=== PATIENT | female | born 1995 | race American Indian/Alaskan Native ===

== ENCOUNTER 2017-10-19 05:02 | Emergency (ER) | payer SELFPAY ==
[2017-10-19 07:48] LABS: Basophils # (Auto) 0.1 K/mm3 (0.0-0.1); Basophils % (Auto) 0.7 % (0.0-1.8); Eosinophils # (Auto) 0.1 K/mm3 (0.0-0.4); Eosinophils % (Auto) 1.3 % (0.0-4.3); Lymphocytes # (Auto) 2.5 K/mm3 (1.2-5.4); Lymphocytes % (Auto) 29.7 % (13.4-35.0); Mean Corpuscular HGB Conc 32 % (30-34); Mean Corpuscular Volume 74 fl (79-97); Monocytes # (Auto) 0.5 K/mm3 (0.0-0.8); Monocytes % (Auto) 6.4 % (0.0-7.3); Platelet Count 428 K/mm3 (140-440); Red Blood Count 4.17 M/mm3 (3.65-5.03)
[2017-10-19 07:51] LABS: Mean Corpuscular Hemoglobin 24 pg (28-32)
[2017-10-19 08:09] LABS: Bilirubin,Urine NEG (Negative); Blood,Urine LG (Negative); Color,Urine Red (Yellow); Nitrite,Urine NEG (Negative); Urobilinogen,Urine < 2.0 mg/dL (<2.0)
[2017-10-19 08:17] LABS: Alanine Aminotransferase 14 units/L (7-56); Albumin 3.5 g/dL (3.9-5); BUN/Creatinine Ratio 8; Blood Urea Nitrogen 5 mg/dL (7-17); Calcium 8.6 mg/dL (8.4-10.2); Hemolysis Index 28
[2017-10-19 08:17] LABS: RBC,Urine > 182.0 /HPF (0.0-6.0)
--- NOTE | 2017-10-19 19:12 | Emergency Department Report ---
ED Abdominal Pain HPI - General Chief Complaint: Abdominal Pain Stated Complaint: ABD PAIN Source: patient Mode of arrival: Ambulatory Limitations: No Limitations - History of Present Illness Initial Comments: 22 Y/O nontoxic in appearance F presents to the ER complaining of suprapubic abdominal pain that started 1 week ago. Pt states that she was on her menstrual cycle about 1 week ago and states that it usually last 3 days and it seems to have prolonged for about 1 week. She has a hx of fibroids, anemia, and a hx of heavy menstrual bleeding in which a physician in [place] had advised control to help prevent heavy bleeding. Pt states that she has been having painful urination for the past 4 days with frequency and urgency, pt denies any fever, chills, CVAT, low back pain, chest pain, SOB, or vomiting. No headaches or dizziness. Pt has not tried anything for the symptoms at this time. She states that she is supposed to be on iron, but isnt at this time as it makes her nauseous. No hx of PE/DVT, no recent long travels, no malignancy, and no recent sugeries or immobility. NKDA. JOHNSON Complaint: abdominal pain -: week(s) (1) Location: suprapubic Radiation: none Migration to: no migration Severity scale (0 -10): 7 Quality: cramping Improves With: nothing Worsens With: nothing Associated Symptoms: nausea, dysuria, hematuria. denies: vomiting, diarrhea, fever, chills, hematemesis, hematochezia, melena - Related Data LMP (females 10-50): last week Previous Rx's Medication Instructions Recorded Last Taken Type Cephalexin [Keflex] 500 mg PO Q12HR #20 cap 10/19/17 Unknown Rx medroxyPROGESTERone ACETATE 10 mg PO DAILY #7 tablet 10/19/17 Unknown Rx [Provera] Allergies Allergy/AdvReac Type Severity Reaction Status Date / Time No Known Allergies Allergy Unverified 10/19/17 06:15 ED Review of Systems ROS: Stated complaint: ABD PAIN Other details as noted in HPI Constitutional: denies: chills, fever Eyes: denies: eye pain, eye discharge, vision change ENT: denies: ear pain, throat pain Respiratory: denies: cough, shortness of breath, wheezing Cardiovascular: denies: chest pain, palpitations Gastrointestinal: abdominal pain, nausea. denies: vomiting, diarrhea, constipation, hematemesis, hematochezia Genitourinary: urgency, dysuria, frequency, hematuria, abnormal menses. denies : discharge Musculoskeletal: denies: back pain, joint swelling, arthralgia Skin: denies: rash, lesions Neurological: denies: headache, weakness, paresthesias Psychiatric: denies: anxiety, depression Hematological/Lymphatic: denies: easy bleeding, easy bruising ED Past Medical Hx - Past Medical History Additional medical history: Anemia - Surgical History Past Surgical History?: No - Social History Smoking Status: Never Smoker Substance Use Type: None - Medications Home Medications: Home Medications Medication Instructions Recorded Confirmed Last Taken Type Cephalexin [Keflex] 500 mg PO Q12HR #20 cap 10/19/17 Unknown Rx medroxyPROGESTERone ACETATE 10 mg PO DAILY #7 tablet 10/19/17 Unknown Rx [Provera] ED Physical Exam - General Limitations: No Limitations General appearance: alert, in no apparent distress - Head Head exam: Present: atraumatic, normocephalic, normal inspection - Eye Eye exam: Present: normal appearance, PERRL, EOMI - ENT ENT exam: Present: mucous membranes moist - Neck Neck exam: Present: normal inspection, full ROM - Respiratory Respiratory exam: Present: normal lung sounds bilaterally. Absent: respiratory distress - Cardiovascular Cardiovascular Exam: Present: regular rate, normal rhythm. Absent: systolic murmur, diastolic murmur, rubs, gallop - GI/Abdominal GI/Abdominal exam: Present: tenderness (at the LLQ and RLQ more at the suprapubic region), normal bowel sounds. Absent: guarding, rebound, diminished bowel sounds, hyperactive bowel sounds, hypoactive bowel sounds - Extremities Exam Extremities exam: Present: normal inspection, other (no LE pain ) - Back Exam Back exam: Present: normal inspection. Absent: tenderness, CVA tenderness (R), CVA tenderness (L) - Neurological Exam Neurological exam: Present: alert, oriented X3, CN II-XII intact, normal gait - Expanded Neurological Exam Expanded Patient oriented to: Present: person, place, time Speech: Present: fluid speech Best Eye Response ([place]): (4) open spontaneously Best Motor Response ([place]): (6) obeys commands Best Verbal Response ([place]): (5) oriented Chey Total: 15 - Psychiatric Psychiatric exam: Present: normal affect, normal mood - Skin Skin exam: Present: warm, dry, intact, normal color. Absent: rash ED Course Vital Signs 10/19/17 10/19/17 10/19/17 05:04 15:23 19:26 Temperature 98.8 F 98.3 F Pulse Rate 89 90 77 Respiratory 18 16 18 Rate Blood Pressure 133/65 156/91 Blood Pressure 125/78 [Right] O2 Sat by Pulse 98 98 100 Oximetry 10/19/17 20:35 Temperature Pulse Rate 79 Respiratory 16 Rate Blood Pressure Blood Pressure 122/74 [Right] O2 Sat by Pulse Oximetry ED Medical Decision Making - Lab Data Result diagrams: 10/19/17 07:33 10/19/17 07:33 - Medical Decision Making Throughout ED stay, pt was seen sitting upright talking on her cell phone. Case was discussed with Dr. Burns and he agrees with plan of care. pt has a known hx of heavy bleeding/clotting and fibroids. The patient's H and H was stable (Hemoglobin -10.0 and Hct- 31.0) in the ER today, her UA was significant for a UTI, there was no signs of nephrolithiasis on examination today. Pt was treated with Provera for the bleeding and Keflex for the UTI. She was educated the importance of OBGYN follow-up within 1 week, she reports to verbal understanding. pt was discharged in stable condition, alert and oriented, and in no resp distress. She was hemodyncally and neurovasculary. Critical care attestation.: If time is entered above; I have spent that time in minutes in the direct care of this critically ill patient, excluding procedure time. ED Disposition Clinical Impression: Abnormal uterine bleeding (AUB) Fibroids Qualifiers: Uterine leiomyoma location: unspecified location Qualified Code(s): D25.9 - Leiomyoma of uterus, unspecified Disposition: DC-01 TO HOME OR SELFCARE Is pt being admited?: No Does the pt Need Aspirin: No Condition: Stable Instructions: Abdominal Pain (ED) Additional Instructions: Plese take your medications as prescribed to you today. It is very important that you follow-up with OBGYN within 1 week. PCP within 3-5 days. Please return to the ER immediately if your presenting symptoms acutely progress or worsen. Prescriptions: Cephalexin [Keflex] 500 mg PO Q12HR #20 cap medroxyPROGESTERone ACETATE [Provera] 10 mg PO DAILY #7 tablet Referrals: PRIMARY CAREMD [Primary Care Provider] - 3-5 Days [facility] [Outside] - 3-5 Days [facility] [Outside] - 3-5 Days VIRGIL CLEVELAND CNM [Staff Physician] - 3-5 Days RANCHO OLSON MD [Referring] - 3-5 Days CORY MATTHEWS MD [Staff Physician] - 3-5 Days Forms: Work/School Release Form(ED)
[2017-10-19 22:34] VITALS: BP 122/74
== END 2017-10-19 20:40 | disposition home or self-care (01) ==
LOC: ED 05:02
DX: D25.9 Leiomyoma of uterus, unspecified (principal); Z86.2 Personal history of diseases of the blood and blood-forming organs and certain disorders involving the immune mechanism
CPT/HCPCS: 36415; 80053; 81001; 84703; 85025; 99283

== ENCOUNTER 2019-03-28 20:00 | Emergency (ER) | payer SELFPAY ==
[2019-03-28 20:08] VITALS: BP 158/84
--- NOTE | 2019-03-28 20:29 | Event Note ---
ED Screening Note Date of service: 03/28/19 Time: 20:27 ED Screening Note: 23 y/o female c/o vaginal irritation. This initial assessment/diagnostic orders/clinical plan/treatment(s) is/are subject to change based on patients health status, clinical progression and re- assessment by fellow clinical providers in the ED. Further treatment and workup at subsequent clinical providers discretion. Patient/guardian urged not to elope from the ED as their condition may be serious if not clinically assessed and managed. Initial orders include:
--- NOTE | 2019-03-28 21:43 | Emergency Department Report ---
ED Female HPI - General Chief complaint: Urogenital-Female Stated complaint: vaginal pain Time Seen by Provider: 03/28/19 21:35 Source: patient Mode of arrival: Ambulatory Limitations: No Limitations - History of Present Illness Initial comments: Pt is a 23 yo female who presents to the ED with c/o vaginal irritation that began 4 days ago. She states she has erythema and edema of the labia. She denies any itching, burning, discharge, vaginal bleeding, dysuria, or urinary frequency. she has never had before. she is sexually active and states she uses protection. she denies any PMHx. - Related Data Previous Rx's Medication Instructions Recorded Last Taken Type cephALEXin [Keflex] 500 mg PO Q12HR #20 cap 10/19/17 Unknown Rx medroxyPROGESTERone ACETATE 10 mg PO DAILY #7 tablet 10/19/17 Unknown Rx [Provera] Acyclovir [Zovirax Tab] 400 mg PO TID 7 Days #21 tab 03/28/19 Unknown Rx Allergies Allergy/AdvReac Type Severity Reaction Status Date / Time No Known Allergies Allergy Verified 03/28/19 20:02 ED Review of Systems ROS: Stated complaint: vaginal pain Other details as noted in HPI Comment: All other systems reviewed and negative ED Past Medical Hx - Past Medical History Previous Medical History?: No Additional medical history: Anemia - Surgical History Past Surgical History?: No - Social History Smoking Status: Current Every Day Smoker Substance Use Type: None - Medications Home Medications: Home Medications Medication Instructions Recorded Confirmed Last Taken Type cephALEXin [Keflex] 500 mg PO Q12HR #20 cap 10/19/17 Unknown Rx medroxyPROGESTERone ACETATE 10 mg PO DAILY #7 tablet 10/19/17 Unknown Rx [Provera] Acyclovir [Zovirax Tab] 400 mg PO TID 7 Days #21 tab 03/28/19 Unknown Rx ED Physical Exam - General Limitations: No Limitations General appearance: alert, in no apparent distress - Head Head exam: Present: atraumatic, normocephalic - Eye Eye exam: Present: normal appearance, PERRL - ENT ENT exam: Present: mucous membranes moist - Respiratory Respiratory exam: Present: normal lung sounds bilaterally. Absent: respiratory distress, wheezes, rales, rhonchi, stridor, chest wall tenderness, accessory muscle use, decreased breath sounds, prolonged expiratory - Cardiovascular Cardiovascular Exam: Present: regular rate, normal rhythm, normal heart sounds. Absent: systolic murmur, diastolic murmur, rubs, gallop - GI/Abdominal GI/Abdominal exam: Present: soft, normal bowel sounds. Absent: distended, tenderness, guarding, rebound, rigid - External exam: Present: lesions (small vesicles present on the mons and labia ), other (hydraulic press operator: CEDRIC Chavez) Speculum exam: Present: vaginal discharge (small amount clear discharge), other (no cervical discharge, small amount of cervical bleeding ) Bi-manual exam: Absent: cervical motion tendernes, adnexal tenderness, adnexal mass, uterine enlargement, uterine tenderness - Back Exam Back exam: Absent: CVA tenderness (R), CVA tenderness (L) - Neurological Exam Neurological exam: Present: alert, oriented X3 - Psychiatric Psychiatric exam: Present: normal affect, normal mood - Skin Skin exam: Present: warm, dry, intact ED Course Vital Signs 03/28/19 20:04 Temperature 98.5 F Pulse Rate 102 H Respiratory 16 Rate Blood Pressure 158/84 O2 Sat by Pulse 97 Oximetry ED Medical Decision Making - Medical Decision Making Pt is a 23 yo female who presents to the ED with c/o vaginal irritation that began 4 days ago. She states she has erythema and edema of the labia. She denies any itching, burning, discharge, vaginal bleeding, dysuria, or urinary frequency. she has never had before. she is sexually active and states she uses protection. she denies any PMHx. on examination pt has small vesicles present on the mons and labia which she states are painful to touch. pt given prescription for acyclovir for presumed HSV infection advised to take as prescribed, discussed with pt to follow up with [employer], PCP, or health department for HSV testing. UA is normal. urine preg is negative. wet prep was negative. pt swabbed for G/C and treated while in the ED with ceftrixone and azithromycin. discussed to follow up with medical records in 1 week for results. no abd tenderness on exam, no adnexal tenderness or CMT, pt is afebrile. advised to please follow up with [employer], primary care doctor, or health department for further STD testing including herpes simplex, syphilis, HIV, etc. return to the emergency room for any new or worsening symptoms. have partner tested and treated as well. abstain from sexual intercourse for 10 days. also discussed the elevation in blood pressure with pt and advised to follow up with PCP in the next 2-3 days and incorporate a healthy diet and exercise regimen. Critical care attestation.: If time is entered above; I have spent that time in minutes in the direct care of this critically ill patient, excluding procedure time. ED Disposition Clinical Impression: Vaginal irritation, Vaginal lesion, Elevated blood pressure reading Disposition: TO HOME OR SELFCARE Is pt being admited?: No Does the pt Need Aspirin: No Condition: Stable Instructions: Genital Herpes Simplex (ED), Sexually Transmitted Diseases (ED), Safe Sex (ED) Additional Instructions: Please take medication as prescribed. please follow up with [employer], primary care doctor, or health department for further STD testing including herpes simplex, syphilis, HIV, etc. may get results from medical records in 1 week. return to [facility] emergency room for any new or worsening symptoms. have partner tested and treated as well. abstain from sexual intercourse for 10 days. Prescriptions: Acyclovir [Zovirax Tab] 400 mg PO TID 7 Days #21 tab Referrals: FLORECITA WORTHINGTON MD [Primary Care Provider] - 2-3 Days Time of Disposition: 23:06 Print Language: [place]
[2019-03-28] MEDS ORDERED: ZITHROMAX PO ONE (22:07)
[2019-03-28] MEDS ORDERED: XYLOCAINE 1% MPF 5 mL INFILTRATI ONE (22:07)
[2019-03-28] MEDS ORDERED: ROCEPHIN IM ONE (22:07)
[2019-03-28 22:25] LABS: Bilirubin,Urine NEG (Negative); Blood,Urine NEG (Negative); Color,Urine Yellow (Yellow); Protein,Urine <15 mg/dL mg/dL (Negative)
[2019-03-28 22:36] LABS: HCG Qualitative,Urine Negative (Negative)
== END 2019-03-28 23:29 | disposition home or self-care (01) ==
LOC: ED 20:00
DX: N89.8 Other specified noninflammatory disorders of vagina (principal); I10 Essential (primary) hypertension; F17.200 Nicotine dependence, unspecified, uncomplicated; Z86.2 Personal history of diseases of the blood and blood-forming organs and certain disorders involving the immune mechanism
CPT/HCPCS: 81001; 81025; 87210; 87591; 96372; 99284; J0696